=== PATIENT | male | born 1970 | race Caucasian/White ===

== ENCOUNTER 2018-11-17 09:42 | Emergency (ER) | payer OTHER ==
--- NOTE | 2018-11-17 10:03 | PDOC ---
History of Present Illness - General Chief Complaint: Altered Mental Status Stated Complaint: AMS Time Seen by Provider: 11/17/18 09:46 History Source: Patient Exam Limitations: Other (poor historian) - History of Present Illness Initial Comments: 11/17/18 11:02 Pt is a 48yo M with unclear PMH of psychiatric problems BIBA for AMS. Per EMS, pt was on the train to go to [place], EMS was called by PD for unclear reason, possibly due to disruptive behavior and odd thinking. EMS states that pt was disoriented to time and self, stating he is from [place] and going to [place], does not recall where he was yesterday or where he is now. Pt states he was joking and does not know why police called EMS. Pt states he has been to numerous hospitals and admitted for unknown reasons. He does not remember where he was yesterday. States he did not pass out, hit his head. Denies taking medications, fevers, chills, chest pain, sob, abdominal pain, headaches, changes in vision, SI/HI. Pt states that he occasionally hears "justin voices" voices telling him about "a war". States he drank 5 shots of whiskey yesterday. Denies other drug use. Past History - Past Medical History Allergies/Adverse Reactions: Allergies Allergy/AdvReac Type Severity Reaction Status Date / Time No Known Allergies Allergy Verified 11/17/18 11:04 Home Medications: Ambulatory Orders NK [No Known Home Medication] 11/17/18 Review of Systems - Review of Systems Constitutional: No: Chills, Fever, Weakness HEENTM: No: Symptoms Reported Respiratory: No: Symptoms reported Cardiac (ROS): No: Symptoms Reported ABD/GI: No: Symptoms Reported : No: Symptoms Reported Musculoskeletal: No: Symptoms Reported Integumentary: No: Symptoms Reported Neurological: No: Symptoms reported Psychiatric: Yes: Other (auditory hallucinations) *Physical Exam - Physical Exam General Appearance: Yes: Appropriately Dressed, Obese, Other (resting comfortably, not wearing shoes). No: Apparent Distress, Disheveled, Intoxicated HEENT: positive: EOMI, RETA, Normal ENT Inspection Neck: positive: Trachea midline, Supple Respiratory/Chest: positive: Lungs Clear, Normal Breath Sounds Cardiovascular: positive: Regular Rhythm, Regular Rate, S1, S2. 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 Per EMS, pt was on the train to go to [place], EMS was called by PD for unclear reason, possibly due to disruptive behavior and odd thinking. EMS states that pt was disoriented to time and self, stating he is from [place] and going to [place], does not recall where he was yesterday or where he is now. Pt states he was joking and does not know why police called EMS. Pt states he has been to numerous hospitals and admitted for unknown reasons. He does not remember where he was yesterday. States he did not pass out, hit his head. Denies taking medications, fevers, chills, chest pain, sob, abdominal pain, headaches, changes in vision, SI/HI. Pt states that he occasionally hears "justin voices" voices telling him about "a war". States he drank 5 shots of whiskey yesterday. Denies other drug use. Vitals: wnl PE: normal, tangential and disorganized thoughts. AOx4. ddx includes but not limited to psychosis, schizophrenia, medication interaction , drug use, electrolyte/metabolic distrubance, encephalopathy Pt likely has schizophrenia and has been hospitalized for it. -tox labs, cbc, cmp -ekg -psych consult pt is resting in bed, not violent, has capacity. will wait for psych evaluation. 11/17/18 12:02 labs normal. Medially clear. Per Dr. Roberto, pt does not require acute intervention Pt may have chronic psychiatric disorder but is not in acute psychosis at this time. Denying SI/HI, is calm and has capacity. Pt ambulatory. Case management contacted to provide [facility] information and shoes. Pt safe for dc *DC/Admit/Observation/Transfer Diagnosis at time of Disposition: Psychiatric disturbance - Discharge Dispostion Disposition: HOME Condition at time of disposition: Good Decision to Admit order: No - Referrals Referrals: Rigoberto Michel MD [Staff Physician] - Zoe Roberto MD [Staff Physician] - - Patient Instructions Additional Instructions: You were seen in the emergency room today. Your blood tests are normal including your CBC, CMP, urine analysis. It is important you take good care of yourself. A list of information has been provided to you. Please stay safe. If you ever want to see a doctor or psychiatrist, the information is provided below. Please call to schedule an appointment Come back to the emergency room if you feel unsafe, pass out, or if any new concerning symptom develops. - Post Discharge Activity
[2018-11-17 10:10] VITALS: TEMP 98.3; BMI 28.5
[2018-11-17 10:33] LABS: BASO % 0.9 % (0-2.0); EOS % 1.1 % (0-4.5); HEMATOCRIT 38.4 % (35.4-49); HEMOGLOBIN 13.1 GM/dL (11.7-16.9); LYMPH % 26.7 % (8-40); MCH 29.4 pg (25.7-33.7); MCHC 34.2 g/dl (32.0-35.9); MEAN CELL VOLUME 86.1 fl (80-96); MEAN PLT VOLUME 7.9 fl (7.5-11.1); MONO % 8.6 % (3.8-10.2); NEUT % 62.7 % (42.8-82.8); PLATELET COUNT 218 K/MM3 (134-434); RBC 4.46 M/mm3 (4.00-5.60); RDW 13.9 % (11.9-15.9); WHITE BLOOD COUNT 8.1 K/mm3 (4.0-10.0)
--- NOTE | 2018-11-17 10:37 | PDOC ---
Attending Attestation - Resident Resident Name: Kimber Randhawa - ED Attending Attestation I have performed the following: I have examined & evaluated the patient, The case was reviewed & discussed with the resident, I agree w/resident's findings & plan, Exceptions are as noted - HPI HPI: 11/17/18 10:29 48-year-old male with past medical history of likely psychiatric illness, obesity presents for psychiatric evaluation. The history was from both the patient and from EMS. The patient is tangential and disorganized. According to EMS, the patient was [place] on a train heading [place]. Patient had no shoes and the weather was raining. Here. Disorganized and 911 was called. Patient reports he was on a train to [place]. When asked upon when he was coming from, the patient reports that we do not need to call his mother as he he is an adult. His answers are very tangential and disorganized. Patient is not suicidal or homicidal. However, the patient is not taking his medications. Patient cannot specify where he is from. - Physicial Exam PE: 11/17/18 10:32 GENERAL: Awake, alert, and fully oriented, in no acute distress. +Obese HEAD: No signs of trauma EYES: EOMI, sclera anicteric, conjunctiva clear ENT: Auricles normal inspection, hearing grossly normal, nares patent, Moist mucosa NECK: Normal ROM, supple, no lymphadenopathy, JVD, or masses LUNGS: Breath sounds equal, clear to auscultation bilaterally. No wheezes, and no crackles HEART: Regular rate and rhythm, normal S1 and S2, no murmurs, rubs or gallops ABDOMEN: Soft, nontender, No guarding, no rebound. No masses EXTREMITIES: Normal range of motion, no edema. No clubbing or cyanosis. No cords, erythema, or tenderness NEUROLOGICAL: Cranial nerves II through XII grossly intact. Normal speech SKIN: Warm, Dry, normal turgor, no rashes or lesions noted. PYSCH: Cooperative, but disorganized and tangential - Medical Decision Making 11/17/18 10:32 Vital Signs Temp Pulse Resp BP Pulse Ox 98.3 F 74 20 145/93 96 11/17/18 10:00 11/17/18 10:00 11/17/18 10:00 11/17/18 10:00 11/17/18 10:00 I suspect patient likely has elements of schizophrenia or paranoia at this time. Though the patient is not acutely suicidal or homicidal, I believe the patient benefit from psychiatric evaluation. Patient would probably benefit from antipsychotics. At this time, the patient is calm and cooperative and willing to stay for an evaluation. It is certainly very possible that this may be his chronic psychiatric condition, and I do not believe that he is at risk of harming himself or other people. We'll consult psychiatry. We'll obtain medical clearance as well. Reassess. 11/17/18 10:[address] Roberto. Will update him once the medical results return. 11/17/18 12:00 CBC, BMP 11/17/18 10:10 11/17/18 10:10 CMP Sodium 138 mmol/L (136-145) 11/17/18 10:10 Potassium 3.3 mmol/L (3.5-5.1) L 11/17/18 10:10 Chloride 105 mmol/L (98-107) 11/17/18 10:10 Carbon Dioxide 26 mmol/L (21-32) 11/17/18 10:10 Anion Gap 7 MMOL/L (8-16) L 11/17/18 10:10 BUN 10 mg/dL (7-18) 11/17/18 10:10 Creatinine 0.8 mg/dL (0.55-1.3) 11/17/18 10:10 Creat Clearance w eGFR 103.18 (>60) 11/17/18 10:10 Random Glucose 118 mg/dL (74-106) H 11/17/18 10:10 Calcium 8.7 mg/dL (8.5-10.1) 11/17/18 10:10 Total Bilirubin 0.4 mg/dL (0.2-1) 11/17/18 10:10 AST 39 U/L (15-37) H 11/17/18 10:10 ALT 61 U/L (13-61) 11/17/18 10:10 Alkaline Phosphatase 84 U/L (45-117) 11/17/18 10:10 Total Protein 7.5 g/dl (6.4-8.2) 11/17/18 10:10 Albumin 3.7 g/dl (3.4-5.0) 11/17/18 10:10 TSH 2.20 uIU/ml (0.358-3.74) 11/17/18 10:14 11/17/18 12:[address] Robreto on the phone. After speaking with the design consultant , we both feel that the patient would be safe for discharged. He is likely chronically ill psychiatrically but at the moment, cooperative and not a danger to himself or others. The patient does not want any medications or further interventions here. Medically he appears clear. Because the patient does not want any interventions and would like to go home, we feel that he can go. I contacted case management who will speak to the patient in regards to intermediate placement and to find him shoes. The patient is ambulatory and requesting to shower, which he is doing now. Pt can be discharged home. *DC/Admit/Observation/Transfer Diagnosis at time of Disposition: Psychiatric disturbance - Discharge Dispostion Disposition: HOME Condition at time of disposition: Good - Referrals Referrals: Zoe Roberto MD [Staff Physician] - Rigoberto Michel MD [Staff Physician] - - Patient Instructions Additional Instructions: You were seen in the emergency room today. Your blood tests are normal including your CBC, CMP, urine analysis. It is important you take good care of yourself. A list of information has been provided to you. Please stay safe. If you ever want to see a doctor or psychiatrist, the information is provided below. Please call to schedule an appointment Come back to the emergency room if you feel unsafe, pass out, or if any new concerning symptom develops. - Post Discharge Activity
[2018-11-17 11:06] LABS: URINE APPEARANCE CLEAR; URINE BILIRUBIN NEGATIVE (NEGATIVE); URINE COLOR YELLOW; URINE GLUCOSE (UA) NEGATIVE (NEGATIVE); URINE KETONE NEGATIVE (NEGATIVE); URINE LEUK ESTERASE NEGATIVE (NEGATIVE); URINE NITRITE NEGATIVE (NEGATIVE); URINE PROTEIN TRACE (NEGATIVE)
[2018-11-17 11:34] LABS: COCAINE, UR NEGATIVE ng/ml (CUTOFF=300); METHADONE, UR NEGATIVE ng/ml (CUTOFF=300); OPIATES, URI NEGATIVE ng/ml (CUTOFF=300); PHENCYCLIDINE,URINE NEGATIVE ng/ml (CUTOFF=25); URINE AMPHETAMINES NEGATIVE ng/ml (CUTOFF=500); URINE BARBITURATES NEGATIVE ng/ml (CUTOFF=200); URINE BENZODIAZEPINES NEGATIVE ng/ml (CUTOFF=200)
[2018-11-17 11:58] LABS: ALBUMIN 3.7 g/dl (3.4-5.0); ALK PHOS 84 U/L (45-117); ANION GAP 7 MMOL/L (8-16); BILIRUBIN,TOTAL 0.4 mg/dL (0.2-1); BLOOD UREA NITROGEN 10 mg/dL (7-18); CALCIUM 8.7 mg/dL (8.5-10.1); CHLORIDE 105 mmol/L (98-107); CO2 26 mmol/L (21-32); CREATININE 0.8 mg/dL (0.55-1.3); GLUCOSE,RANDOM 118 mg/dL (74-106); POTASSIUM 3.3 mmol/L (3.5-5.1); SGOT/AST 39 U/L (15-37); SGPT/ALT 61 U/L (13-61); SODIUM 138 mmol/L (136-145); TOT PROT 7.5 g/dl (6.4-8.2)
[2018-11-17 12:26] VITALS: BP 152/82; PULSE 89
== END 2018-11-17 12:26 | disposition home or self-care (01) ==
LOC: JER 09:42
DX: F99 Mental disorder, not otherwise specified (principal)
CPT/HCPCS: 36415; 80053; 80307; 81003; 84443; 85025; 86593; 99283-25